=== PATIENT | female | born 2000 | race Caucasian/White ===

== ENCOUNTER 2024-06-29 18:07 | Outpatient (CLI) | payer MEDICAID, SELFPAY | END 2024-06-29 18:08 | disposition home or self-care (01) | LOC: AMB 07-01 23:14 | PROVIDERS: Visit Provider Family Medicine | DX: R45.851 Suicidal ideations (principal) | CPT/HCPCS: A0425; A0429 ==

== ENCOUNTER 2024-06-29 18:26 | Emergency (ER) | payer MEDICAID, SELFPAY ==
[2024-06-29 18:41] VITALS: BP 139/86; PULSE 88; RESP 16; TEMP 36.6; O2SAT 97
[2024-06-29 18:45] LABS: Appearance Urine Turbid (Clear); Bilirubin Urine Negative (Negative); Blood Urine Negative (Negative); Color Urine Yellow (Yellow); Glucose Urine Negative (Negative); Ketones Urine Negative (Negative); Leukocyte Esterase Urine Negative (Negative); Nitrite Urine Negative (Negative); Protein Urine Negative (Negative); Specific Gravity Urine 1.015 (1.000-1.030); Urobilinogen Urine 0.2 (0.2-1.0)
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
[2024-06-29 18:53] LABS: RBC Urine 0-2 (0-2); Squamous Epithelial Cell Urine Few (None-Few); WBC Urine 0-2 (0-5)
[2024-06-29 18:55] LABS: Amphetamine Screen Urine Negative (Negative); Barbiturate Screen Urine Negative (Negative); Benzodiazepines Screen Urine Negative (Negative); Cannabinoid Screen Urine Negative (Negative); Cocaine Screen Urine Negative (Negative); Methadone Screen Urine Negative (Negative); Methamphetamines Screen Urine Negative (Negative); Opiate Screen Urine Negative (Negative); Oxycodone Screen Urine Negative (Negative); Phencyclidine Screen Urine Negative (Negative); Tricyclic Antidepressant Urine Negative (Negative)
[2024-06-29 19:03] LABS: Ur HCG Qualitative* Negative (Negative)
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
--- NOTE | 2024-06-29 19:48 | ED.NURSE ---
Pt is calm and cooperative at this time, pt is with [facility] caregiver.
[2024-06-29 20:34] VITALS: BP 125/78; PULSE 80; RESP 16; TEMP 36.6; O2SAT 97
[2024-06-29 20:35] VITALS: BP 125/78; PULSE 80; RESP 16; TEMP 36.6
[2024-06-29 21:21] LABS: Ur HCG Qualitative* Negative (Negative)
== END 2024-06-29 20:36 | disposition home or self-care (01) ==
PROVIDERS: Emergency Provider Family Medicine
DX: S01.81XA Laceration without foreign body of other part of head, initial encounter (principal); W26.9XXA Contact with unspecified sharp object(s), initial encounter
CPT/HCPCS: 12001; 70486; 80306; 81001; 81025; 99283; 99284

== ENCOUNTER 2024-07-09 18:00 | Emergency (ER) | payer MEDICAID, SELFPAY ==
[2024-07-09 18:26] VITALS: BP 145/81; PULSE 99; RESP 18; TEMP 36.6; O2SAT 98; BMI 24.8
--- NOTE | 2024-07-09 18:47 | ED.WOUNDLAC ---
HPI - Wound/Laceration General Chief Complaint: Laceration/Wound Stated Complaint: chin laceration Time Seen by Provider: 07/09/24 18:16 History of Present Illness HPI narrative: This 23 year old female comes in from [facility] because of a chin laceration. She fell and cut herself in the center of the mandible at the angle of her chin. She did not have loss of consciousness. She does not report any other injury. She states that her teeth come together properly. Related Data Home Medications ?Medication ?Instructions ?Recorded ?Confirmed acetaminophen 325 mg tablet 650 mg PO Q6H PRN 05/26/24 05/28/24 aloe vera 99.5 % topical gel ea topical 05/26/24 05/28/24 aluminum-mag hydroxide-simethicone 10 ml PO QID PRN 05/26/24 05/28/24 200 mg-200 mg-20 mg/5 mL oral susp (Agueda-Lanta) bacitracin 500 unit/gram topical 1 applic topical Q8H 05/26/24 05/28/24 ointment cetirizine 10 mg tablet (All Day 10 mg PO QDAY PRN 05/26/24 05/28/24 Allergy (cetirizine)) cholecalciferol (vitamin D3) PO 05/26/24 05/28/24 clotrimazole topical 05/26/24 05/28/24 dextromethorphan polistirex PO 05/26/24 05/28/24 [Robitussin ER] famotidine PO 05/26/24 05/28/24 hydrocortisone [Anti-Itch (HC)] topical 05/26/24 05/28/24 hydroxyzine HCl 50 mg tablet 50 mg PO QHS 05/26/24 05/28/24 ibuprofen 400 mg tablet 400 mg PO Q8H 05/26/24 05/28/24 ibuprofen [Midol IB] PO 05/26/24 05/28/24 lamotrigine 150 mg tablet 150 mg PO BID 05/26/24 05/28/24 lamotrigine 25 mg tablet 25 mg PO BID 05/26/24 05/28/24 loperamide 2 mg tablet 2 mg PO Q6H PRN 05/26/24 05/28/24 (Anti-Diarrheal (loperamide)) magnesium chloride PO 05/26/24 05/28/24 magnesium hydroxide [Milk of PO 05/26/24 05/28/24 Magnesia] menthol [[place] Cough Drops] mucous membrane 05/26/24 05/28/24 paroxetine HCl 40 mg tablet 40 mg PO QDAY 05/26/24 05/28/24 congidrce-mrspwfp-reyf acetate 1 applic topical TID 05/26/24 05/28/24 lotion (Caldyphen Clear lotion) selenium sulfide 1 % shampoo 1 applic topical QDAY 05/26/24 05/28/24 (Anti-Dandruff) diphenhydramine HCl 25 mg capsule 25 mg PO QHS PRN 05/28/24 05/28/24 (Benadryl) Allergies Allergy/AdvReac Type Severity Reaction Status Date / Time latex Allergy Verified 05/28/24 13:08 mold Allergy Verified 05/28/24 13:08 Review of Systems Status of ROS: Reports: 10 or more systems reviewed and unremarkable except as noted in History and below Narrative: Constitutional: No fevers, no weight gain or loss. Eyes: No discharge. No vision changes. HENT: No congestion, no sore throat, no ear pain. Cardiovascular: No chest pain, no palpitations. Respiratory: No shortness of breath, no wheezes, no cough. Gastrointestinal: No abdominal pain, no vomiting, no diarrhea. Genitourinary: No dysuria, no hematuria. Musculoskeletal: Normal range of motion. Skin: No rashes, no pruritis. Neurological: No dizziness, weakness, sensory change, speech change. Endo/Heme/Allergies: No bruising or bleeding. No polydipsia. Pysch: no suicidality, no anxiety, no insomnia. All other systems reviewed and are negative. [facility] Social History Smoking Status: Never smoker Do you use any of these nicotine containing products: None How often do you have a drink containing alcohol: never How often do you have six or more drinks on one occasion: Never AUDIT-C Alcohol total score: 0 Non-prescribed substance use: denies use Exam Narrative: Exam Narrative: Constitutional: Well-developed, well-nourished, no acute distress. HEENT: 2 cm linear laceration along the angle of the mandible at the chin. Neck: Normal range of motion. Nontender. Supple. Heart: Regular. No murmurs. Normal rate. Intact distal pulses. Lungs: Clear to auscultation. No chest discomfort. No wheezes, rhonchi, or rales. Abdomen: Normal bowel sounds. Nontender. No rebound tenderness. Genitalia: Deferred. Back: No midline tenderness. Normal range of motion. Extremities: Normal range of motion. No injury. Skin: Intact. No rash. Warm. No erythema or pallor. Neurologic: No altered sensation. No weakness. Alert and oriented. Psychiatric: No suicidality. No anxiety or depression. No insomnia. Nursing notes and vitals signs are reviewed. Const: Vital Signs, click to edit/add: Vital Signs - 24 hr 07/09/24 18:26 Temperature 97.9 F Pulse Rate [Pulse Oximeter] 99 Respiratory Rate 18 Blood Pressure [Ri t Upper Arm] 145/81 H Pulse Oximetry 98 Oxygen Delivery Me thod Room Air Course Vital Signs Vital signs: Initial Vital Signs Temperature 97.9 F 07/09/24 18:26 Temperature Source Temporal Artery Scan 07/09/24 18:26 Pulse Rate 99 07/09/24 18:26 Pulse Rhythm Regular 07/09/24 18:26 Respiratory Rate 18 07/09/24 18:26 Blood Pressure 145/81 H 07/09/24 18:26 Blood Pressure Mean 102 07/09/24 18:26 Blood Pressure Position Sitting 07/09/24 18:26 Pulse Oximetry 98 07/09/24 18:26 Oxygen Delivery Method Room Air 07/09/24 18:26 Vital Signs Temperature 97.9 F 07/09/24 18:26 Pulse Rate 99 07/09/24 18:26 Respiratory Rate 18 07/09/24 18:26 Blood Pressure 145/81 H 07/09/24 18:26 Pulse Oximetry 98 07/09/24 18:26 Oxygen Delivery Method Room Air 07/09/24 18:26 Temperature 97.9 F 07/09/24 18:26 Pulse Rate 99 07/09/24 18:26 Respiratory Rate 18 07/09/24 18:26 Blood Pressure 145/81 H 07/09/24 18:26 Pulse Oximetry 98 07/09/24 18:26 Oxygen Delivery Method Room Air 07/09/24 18:26 MDM - Wound/Laceration MDM Narrative Medical decision making narrative: This patient comes in with a laceration to the chin. The edges of the wound would benefit by approximating with sutures. I cleansed the wound with normal saline. After anesthesia with 1% lidocaine I placed 3 sutures using 5.0 Ethilon suture. She received her last tetanus vaccination 2 years ago so she is up-to-date. Instructions regarding wound care were given and the need to have sutures removed in 5-7 days. Discharge Plan Discharge Clinical Impression: Laceration Patient Disposition: Home w/ Parent or Adult Condition: Improved Additional Instructions: Keep wound clean and dry. Follow-up with urgent care or clinic in 5-7 days for suture removal. Prescriptions: No Action acetaminophen 325 mg tablet 650 mg PO Q6H PRN aloe vera 99.5 % gel topical Anti-Dandruff 1 % shampoo 1 applic topical QDAY Rx Instructions: massage into affected area; leave on for 10 mins ; rinse off thoroughly loperamide [Anti-Diarrheal (loperamide)] 2 mg tablet 2 mg PO Q6H PRN bacitracin 500 unit/gram ointment 1 applic topical Q8H Caldyphen Clear Lotion 1 applic topical TID cetirizine [All Day Allergy (cetirizine)] 10 mg tablet 10 mg PO QDAY PRN clotrimazole topical famotidine PO alum-mag hydroxide-simeth [Agueda-Lanta] 200-200-20 mg/5 mL suspension 10 ml PO QID PRN Rx Instructions: administer between meals and at bedtime menthol [[place] Cough Drops] mucous membrane hydrocortisone [Anti-Itch (HC)] topical hydroxyzine HCl 50 mg tablet 50 mg PO QHS ibuprofen 400 mg tablet 400 mg PO Q8H lamotrigine 150 mg tablet 150 mg PO BID lamotrigine 25 mg tablet 25 mg PO BID magnesium chloride PO ibuprofen [Midol IB] PO magnesium hydroxide [Milk of Magnesia] PO paroxetine HCl 40 mg tablet 40 mg PO QDAY dextromethorphan polistirex [Robitussin ER] PO cholecalciferol (vitamin D3) PO diphenhydramine HCl [Benadryl] 25 mg capsule 25 mg PO QHS PRN Follow Up/Referrals: Provider,Not a Local [Primary Care Provider] - Stand Alone Forms: [employer] Info Instructions
== END 2024-07-09 19:18 | disposition home or self-care (01) ==
LOC: ED 19:07
PROVIDERS: Emergency Provider Emergency Medicine Emergency Medical Services
DX: S01.81XA Laceration without foreign body of other part of head, initial encounter (principal); W22.8XXA Striking against or struck by other objects, initial encounter
CPT/HCPCS: 12011; 99283; 99284

== ENCOUNTER 2024-11-30 18:12 | Emergency (ER) | payer MEDICAID, SELFPAY ==
[2024-11-30 18:31] VITALS: BP 142/75; PULSE 104; RESP 16; TEMP 37.2; O2SAT 98; BMI 28.3
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
--- NOTE | 2024-11-30 19:05 | ED.NURSE ---
[facility] nurse has called back and asks to speak to the client alone. DON of shelter that is with client states that she is talking with SARS nurse first. This nurse has kindly asked for phone to be handed off to client, DON of shelter finally gave client the phone to talk with [facility] nurse.
--- OUTSIDE RECORDS SUMMARY | 2024-12-01 00:09 | XMS_ITS | Continuity of Care Document ---
Author Name N[facility] User [id number] llowed Address Unknown Organization Unknown Address Unknown Encounters FILTER APPLIED:Only known Encounters with Admission Date within the last 5 years Encounter Location Admission Discharge Billing Code Fire Systems Inspector Anna benitez [facility] Inpatient Health [facility]
--- OUTSIDE RECORDS SUMMARY | 2024-12-01 00:18 | XMS_ITS | Continuity of Care Document ---
Author Name [facility] User Koble[facility]-a llowed Address Unknown Organization Unknown Address Unknown Encounters FILTER APPLIED:Only known Encounters with Admission Date within the last 5 years Encounter Location Admission Discharge Billing Code Thermometer Tester Anna benitez Unknown [facility] Inpatient Health [facility]
== END 2024-11-30 20:12 | disposition home or self-care (01) ==
LOC: ED 20:10
DX: T74.21XA Adult sexual abuse, confirmed, initial encounter (principal)